=== PATIENT | male | born 2000 | race Caucasian/White ===

== ENCOUNTER 2020-05-07 22:04 | Emergency (ER) | payer BC ==
[~2020-05-07] VITALS: Ht 175.3 cm; Wt 127.0 kg
[~2020-05-07 22:04] MED LIST: NOHOMEMEDICATIONS
[2020-05-07 23:00] LABS: AMP/METHAMP Negative (Negative); BARBITURATES Negative (Negative); BENZODIAZEPINES Negative (Negative); COCAINE Negative (Negative); METHADONE Negative (Negative); OPIATES Negative (Negative); PCP Negative (Negative); THC POSITIVE (Negative)
[2020-05-07 23:17] LABS: ABSOLUTE BASOPHILS 0.1 thou/uL (0.0-0.2); ABSOLUTE EOSINOPHILS 0.1 thou/uL (0.0-0.7); ABSOLUTE LYMPHOCYTES 1.3 thou/uL (0.8-5.3); ABSOLUTE MONOCYTES 0.8 thou/uL (0.0-1.2); ABSOLUTE NEUTROPHILS 7.5 thou/uL (1.6-8.1); BASOPHILS 0.8 %; EOSINOPHILS 1.2 %; HEMATOCRIT 42.1 % (42.0-52.0); HEMOGLOBIN 14.7 gm/dL (14.0-18.0); LYMPHOCYTES 13.1 %; MCH 30.4 pg (26.0-34.0); MONOCYTES 8.1 %; MPV 10.9 fl. (7.2-11.1); NUCLEATED RBCS 0 /100WBC; PLATELET COUNT* 205 thou/uL (150-400); POLYS 76.8 %; RBC 4.84 mil/uL (4.50-6.00); RDW-CV 12.8 % (10.5-14.5); WBC 9.8 thou/uL (4.0-11.0)
[2020-05-07 23:21] LABS: CREATININE 1.4 mg/dL (0.6-1.3); POTASSIUM 3.4 mmol/L (3.5-5.1)
[2020-05-07 23:43] VITALS: BP 132/70
--- NOTE | 2020-05-09 10:38 | EKG ---
[place] [address] ELECTROCARDIOGRAM REPORT Name: CAMPBELL MEJIA Room: 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: [facility] : 2000 Requested By: Shlebie Croft Order Number: [id number] Giuseppe MD: Ray Massey Measurements Intervals M[place]leary Rate: 119 P: 49 ME: 153 QRS: 18 QRSD: 112 T: 2 QT: 322 QTc: 454 Interpretive Statements Sinus tachycardia Probable left atrial enlargement Incomplete right bundle branch block Baseline wander in lead(s) V6 No previous ECG available for comparison Electronically Signed On 05-09-2020 10:38:31 CDT by Ray Massey [email or web address] <ELECTRONICALLY SIGNED> By: Ray Massey MD, [facility] 05/09/20 1038 26 Ray Massey MD, [facility] /EPI
== END 2020-05-07 23:44 | disposition home or self-care (01) ==
LOC: M.ERS 22:04
PROVIDERS: Emergency Medicine
DX: F41.9 Anxiety disorder, unspecified (principal)